=== PATIENT | female | born 1995 | race Caucasian/White ===

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

== ENCOUNTER 2017-03-31 04:26 | Emergency (ER) | payer OTHER, SELFPAY ==
[2017-03-31] MEDS ORDERED: Sodium Chloride 0.9% 1000 ML 1,000 ML IV STA (04:48)
[2017-03-31] MEDS ORDERED: Zofran 4 MG/2 ML VIAL IV STA (04:48)
--- NOTE | 2017-03-31 05:11 | ERPHSYRPT ---
- History of Present Illness Time Seen by Provider: 03/31/17 04:45 Source: patient Exam Limitations: no limitations Patient Subjective Stated Complaint: Pt sts onset at 1900 of burning in chest with cough, general malaise, body aches, nausea. Reports vomiting x 2. Reports yellow sputum with cough. Reports has not had BM in 2 weeks. Reports last tylenol at 0200, taking "four every four hours". Triage Nursing Assessment: Pt alert, oriented, answers all questions appropriately. Skin pink, warm, dry. Resps non-labored. pt ambulatory to tx room , steady gait noted. Lung sounds clear and equal bilat, non-labored. No rales, rhonchi, wheeze noted. ABD soft, diffusely mild tender all quadrants. + bowel sounds noted. Lips dry. Physician History: Pt started c/o gen. soreness, aching, nausea, vomiting x2 since midnight. She apparently had fever (103F), took 4 Tylenol, denies diarrhea, vomiting blood or coffee ground material. Her boyfriend has been treated with Bronchitis. Fever Severity: mild Fever Therapy [employer]: Acetaminophen Associated Symptoms: cough, muscle aches, nausea/vomiting, rhinorrhea, sore throat Allergies/Adverse Reactions: codeine [Codeine] Allergy (Mild, Verified 03/31/17 04:45) Home Medications: Etonogestrel [Nexplanon] 68 mg SQ UD 07/09/16 [History] Hx Tetanus, Diphtheria Vaccination/Date Given: Yes Hx Influenza Vaccination/Date Given: No Hx Pneumococcal Vaccination/Date Given: No - Review of Systems Constitutional: Fever, Chills Ears, Nose, & Throat: Nose Congestion, Throat Pain Respiratory: Cough All Other Systems: Reviewed and Negative - Past Medical History Pertinent Past Medical History: No GI Medical History: Ulcer Psycho-Social History: Anxiety, Depression Other Medical History: ovarian cysts - Past Surgical History Past Surgical History: No Other Surgical History: Nexplanon placement 04/2016 - Social History Smoking Status: Never smoker Exposure to second hand smoke: No Drug Use: none Patient Lives Alone: No - Female History Hx Last Menstrual Period: december 2016 - irregular, has nexplanon Hx Now: No - Nursing Vital Signs Nursing Vital Signs: Initial Vital Signs Temperature 99.7 F 03/31/17 04:38 Pulse Rate 129 H 03/31/17 04:38 Respiratory Rate 18 03/31/17 04:38 Blood Pressure 141/64 03/31/17 04:38 O2 Sat by Pulse Oximetry 96 03/31/17 04:38 Pain Scale Pain Intensity 6 - Physical Exam General Appearance: no apparent distress Eye Exam: eyes nml inspection ENT Exam: normal ENT inspection, TMs normal, pharynx normal, nasal congestion Neck Exam: normal inspection, non-tender, supple, trachea midline, No JVD Respiratory Exam: normal breath sounds, chest non-tender, lungs clear, no respiratory distress Cardiovascular/Chest Exam: normal heart sounds, regular rate/rhythm, normal peripheral pulses, No murmur, No edema, No JVD Gastrointestinal/Abdominal Exam: soft, non tender, no distention, no mass, no guarding, no organomegaly Extremity Exam: non-tender, no calf tenderness Neurologic Exam: alert, oriented x 3, cooperative, normal mood/affect Skin Exam: normal color, warm, dry, No rash Lymphatic: No adenopathy SpO2: 96 Oxygen Delivery: Room Air - Radiology Exams Chest X-ray Interpretation: Interpreted by me, Nml Heart Size, No Infiltrates, Nml Mediastinum Ordered Tests: Active Orders 24 hr Category Date Time Status IV Insertion STAT Care 03/31/17 04:48 Active CHEST 2 VIEWS (PA AND LAT) Stat Exams 03/31/17 04:48 Taken ACETAMINOPHEN Stat Lab 03/31/17 05:10 Completed CBC W DIFF Stat Lab 03/31/17 05:20 Completed CMP Stat Lab 03/31/17 05:20 Completed CULTURE, THROAT Stat Lab 03/31/17 05:00 Received HCG,QUALITATIVE URINE Stat Lab 03/31/17 05:10 Completed LIPASE Stat Lab 03/31/17 05:20 Completed Lactic Acid Stat Lab 03/31/17 05:40 Completed Manual Differential NC Stat Lab 03/31/17 05:20 Completed [place] Screen Stat Lab 03/31/17 05:20 Completed STREP SCREEN-BETA A Stat Lab 03/31/17 05:00 Completed UA W/RFX UR CULTURE Stat Lab 03/31/17 05:10 Completed Medication Summary Discontinued Medications Generic Name Dose Route Start Last Admin Trade Name Freq PRN Reason Stop Dose Admin Sodium Chloride 1,000 mls @ 999 mls/hr 03/31/17 04:48 03/31/17 05:52 Sodium Chloride 0.9% 1000 Ml IV 03/31/17 05:48 999 mls/hr .Q1H1M STA Administration Sodium Chloride Confirm 03/31/17 05:14 Sodium Chloride 0.9% 1000 Ml Administered 03/31/17 05:15 Dose 1,000 mls @ ud .ROUTE .GIVTED-[employer] ONE Ondansetron HCl 4 mg 03/31/17 04:48 03/31/17 05:52 Zofran 4 Mg/2 Ml Vial IV 03/31/17 04:49 4 mg STAT STA Administration Ondansetron HCl Confirm 03/31/17 05:14 Zofran 4 Mg/2 Ml Vial Administered 03/31/17 05:15 Dose 4 mg .ROUTE .Eligible-[facility] ONE Lab/Rad Data: Laboratory Result Diagrams 03/31/17 05:20 03/31/17 05:20 Laboratory Results 03/31/17 03/31/17 03/31/17 Range/Units 05:40 05:20 05:20 WBC (4.0-10.5) K/mm3 RBC (4.1-5.4) M/mm3 Hgb (12.0-16.0) gm/dl Hct (35-47) % MCV (78-100) fl MCH (26-32) pg MCHC (32-36) g/dl RDW (11.5-14.0) % Plt Count (150-450) K/mm3 MPV (6-9.5) fl Sodium (136-145) mEq/L Potassium (3.5-5.1) mEq/L Chloride (98-107) mEq/L Carbon Dioxide (21-32) mEq/L Anion Gap (5-15) MEQ/L BUN (9-20) mg/dL Creatinine (0.55-1.30) mg/dl Estimated GFR ML/MIN Glucose (70-110) MG/DL Lactic Acid 0.8 (0.4-2.0) Calcium (8.5-10.1) mg/dL Total Bilirubin (0.2-1.0) mg/dL AST (15-37) U/L ALT (12-78) U/L Alkaline Phosphatase (46-116) U/L Serum Total Protein (6.4-8.2) gm/dL Albumin (3.4-5.0) g/dL Lipase 82 (73-393) U/L Ur Collection Type Urine Color (YELLOW) Urine Appearance (CLEAR) Urine pH (5-6) Ur Specific [place] (1.005-1.025) Urine Protein (Negative) Urine Ketones (NEGATIVE) Urine Blood (0-5) Otto/ul Urine Nitrite (NEGATIVE) Urine Bilirubin (NEGATIVE) Urine Urobilinogen (0-1) mg/dL Ur Leukocyte Esterase (NEGATIVE) Urine Culture Reflexed (NO) Urine Glucose (NEGATIVE) mg/dL Urine HCG, Qual (Negative) Acetaminophen (10-30) ug/ml Monoscreen NEGATIVE (Negative) Influenza Type A Ag (NEGATIVE) Influenza Type B Ag (NEGATIVE) RSV (PCR) (Negative) Streptococcus Screen (Negative) Specimen Received 03/31/17 03/31/17 03/31/17 Range/Units 05:20 05:20 05:10 WBC 6.9 (4.0-10.5) K/mm3 RBC 4.42 (4.1-5.4) M/mm3 Hgb 11.7 L (12.0-16.0) gm/dl Hct 35.4 (35-47) % MCV 80.1 (78-100) fl MCH 26.4 (26-32) pg MCHC 33.1 (32-36) g/dl RDW 13.1 (11.5-14.0) % Plt Count 260 (150-450) K/mm3 MPV 9.5 (6-9.5) fl Sodium 138 (136-145) mEq/L Potassium 3.6 (3.5-5.1) mEq/L Chloride 106 (98-107) mEq/L Carbon Dioxide 21.3 (21-32) mEq/L Anion Gap 13.8 (5-15) MEQ/L BUN 6 L (9-20) mg/dL Creatinine 0.73 (0.55-1.30) mg/dl Estimated GFR > 60 ML/MIN Glucose 90 (70-110) MG/DL Lactic Acid (0.4-2.0) Calcium 9.1 (8.5-10.1) mg/dL Total Bilirubin 0.20 (0.2-1.0) mg/dL AST 23 (15-37) U/L ALT 10 L (12-78) U/L Alkaline Phosphatase 79 (46-116) U/L Serum Total Protein 7.5 (6.4-8.2) gm/dL Albumin 3.7 (3.4-5.0) g/dL Lipase (73-393) U/L Ur Collection Type Urine Color (YELLOW) Urine Appearance (CLEAR) Urine pH (5-6) Ur Specific [place] (1.005-1.025) Urine Protein (Negative) Urine Ketones (NEGATIVE) Urine Blood (0-5) Otto/ul Urine Nitrite (NEGATIVE) Urine Bilirubin (NEGATIVE) Urine Urobilinogen (0-1) mg/dL Ur Leukocyte Esterase (NEGATIVE) Urine Culture Reflexed (NO) Urine Glucose (NEGATIVE) mg/dL Urine HCG, Qual (Negative) Acetaminophen < 2.0 L (10-30) ug/ml Monoscreen (Negative) Influenza Type A Ag (NEGATIVE) Influenza Type B Ag (NEGATIVE) RSV (PCR) (Negative) Streptococcus Screen (Negative) Specimen Received 03/31/17 03/31/17 03/31/17 Range/Units 05:10 05:10 05:00 WBC (4.0-10.5) K/mm3 RBC (4.1-5.4) M/mm3 Hgb (12.0-16.0) gm/dl Hct (35-47) % MCV (78-100) fl MCH (26-32) pg MCHC (32-36) g/dl RDW (11.5-14.0) % Plt Count (150-450) K/mm3 MPV (6-9.5) fl Sodium (136-145) mEq/L Potassium (3.5-5.1) mEq/L Chloride (98-107) mEq/L Carbon Dioxide (21-32) mEq/L Anion Gap (5-15) MEQ/L BUN (9-20) mg/dL Creatinine (0.55-1.30) mg/dl Estimated GFR ML/MIN Glucose (70-110) MG/DL Lactic Acid (0.4-2.0) Calcium (8.5-10.1) mg/dL Total Bilirubin (0.2-1.0) mg/dL AST (15-37) U/L ALT (12-78) U/L Alkaline Phosphatase (46-116) U/L Serum Total Protein (6.4-8.2) gm/dL Albumin (3.4-5.0) g/dL Lipase (73-393) U/L Ur Collection Type CLEAN CATCH Urine Color LT.YELLOW (YELLOW) Urine Appearance CLEAR (CLEAR) Urine pH 7.0 (5-6) Ur Specific [place] 1.005 (1.005-1.025) Urine Protein NEGATIVE (Negative) Urine Ketones NEGATIVE (NEGATIVE) Urine Blood NEGATIVE (0-5) Otto/ul Urine Nitrite NEGATIVE (NEGATIVE) Urine Bilirubin NEGATIVE (NEGATIVE) Urine Urobilinogen NORMAL (0-1) mg/dL Ur Leukocyte Esterase NEGATIVE (NEGATIVE) Urine Culture Reflexed NO (NO) Urine Glucose NEGATIVE (NEGATIVE) mg/dL Urine HCG, Qual NEGATIVE (Negative) Acetaminophen (10-30) ug/ml Monoscreen (Negative) Influenza Type A Ag POSITIVE (NEGATIVE) Influenza Type B Ag NEGATIVE (NEGATIVE) RSV (PCR) NEGATIVE (Negative) Streptococcus Screen (Negative) Specimen Received 03/31/17 0510 03/31/17 Range/Units 05:00 WBC (4.0-10.5) K/mm3 RBC (4.1-5.4) M/mm3 Hgb (12.0-16.0) gm/dl Hct (35-47) % MCV (78-100) fl MCH (26-32) pg MCHC (32-36) g/dl RDW (11.5-14.0) % Plt Count (150-450) K/mm3 MPV (6-9.5) fl Sodium (136-145) mEq/L Potassium (3.5-5.1) mEq/L Chloride (98-107) mEq/L Carbon Dioxide (21-32) mEq/L Anion Gap (5-15) MEQ/L BUN (9-20) mg/dL Creatinine (0.55-1.30) mg/dl Estimated GFR ML/MIN Glucose (70-110) MG/DL Lactic Acid (0.4-2.0) Calcium (8.5-10.1) mg/dL Total Bilirubin (0.2-1.0) mg/dL AST (15-37) U/L ALT (12-78) U/L Alkaline Phosphatase (46-116) U/L Serum Total Protein (6.4-8.2) gm/dL Albumin (3.4-5.0) g/dL Lipase (73-393) U/L Ur Collection Type Urine Color (YELLOW) Urine Appearance (CLEAR) Urine pH (5-6) Ur Specific [place] (1.005-1.025) Urine Protein (Negative) Urine Ketones (NEGATIVE) Urine Blood (0-5) Otto/ul Urine Nitrite (NEGATIVE) Urine Bilirubin (NEGATIVE) Urine Urobilinogen (0-1) mg/dL Ur Leukocyte Esterase (NEGATIVE) Urine Culture Reflexed (NO) Urine Glucose (NEGATIVE) mg/dL Urine HCG, Qual (Negative) Acetaminophen (10-30) ug/ml Monoscreen (Negative) Influenza Type A Ag (NEGATIVE) Influenza Type B Ag (NEGATIVE) RSV (PCR) (Negative) Streptococcus Screen NEGATIVE (Negative) Specimen Received - Progress Progress: improved Progress Note: 03/31/17 06:26 Pt has been afebrile, stopped vomiting, feels better altogether. She was given iv fluids, Toradol, iv Zofran. Flu A test positive. I explained our results, and the need to rest for 2-3 days, drink plenty of fluids, and follow up with her doctor next week. She understood, will follow instructions, and return if any worseninbg, severe headaches, vomiting, high fever> 103F. All questions answered. - Departure Time of Disposition: 06:28 Departure Disposition: Home Clinical Impression: Influenza A Condition: Stable Critical Care Time: No Referrals: DUDLEY SANDOVAL),FLORIAN OLIVARES MD [Primary Care Provider] - Instructions: Vomiting -- Adult, Influenza -- Adult Additional Instructions: Rest x 2-3 days, drink plenty of fluids, return if severe headaches, vomiting, high fever> 103F, lethargy ! Prescriptions: Oseltamivir 75 mg [Tamiflu 75MG Capsule] 75 mg PO BID #10 cap
[2017-03-31] MEDS ORDERED: Zofran 4 MG/2 ML VIAL ONE (05:14)
[2017-03-31] MEDS ORDERED: Sodium Chloride 0.9% 1000 ML 1,000 ML ONE (05:14)
[2017-03-31 05:31] LABS: Mean Cell Volume 80.1 fl (78-100); Mean Platelet Volume 9.5 fl (6-9.5); Platelet Count 260 K/mm3 (150-450); Red Blood Count 4.42 M/mm3 (4.1-5.4); Red Cell Distribution Width 13.1 % (11.5-14.0); White Blood Count 6.9 K/mm3 (4.0-10.5)
[2017-03-31 05:44] LABS: Mean Corpuscular Hemoglobin 26.4 pg (26-32)
[2017-03-31 05:49] LABS: ALBUMIN 3.7 g/dL (3.4-5.0); ALKALINE PHOSPHATASE 79 U/L (46-116); ANION GAP 13.8 MEQ/L (5-15); BLOOD UREA NITROGEN 6 mg/dL (9-20); CHLORIDE 106 mEq/L (98-107); Carbon Dioxide 21.3 mEq/L (21-32); Glucose 90 MG/DL (70-110); Potassium 3.6 mEq/L (3.5-5.1); SGOT/AST 23 U/L (15-37); SODIUM 138 mEq/L (136-145); Total Protein 7.5 gm/dL (6.4-8.2)
[2017-03-31 05:51] LABS: ADD URINE CULTURE? NO (NO); Bilirubin NEGATIVE (NEGATIVE); Blood NEGATIVE Ery/ul (0-5); COMPLETE URINE MICROSCOPIC? NO; Collection Type CLEAN CATCH; Glucose NEGATIVE (NEGATIVE); Leukocyte Esterase NEGATIVE (NEGATIVE)
[2017-03-31 06:00] LABS: SGPT/ALT 10 U/L (12-78)
[2017-03-31] MEDS ORDERED: TORAdol 30 mg Injection IV ONE (06:25)
[2017-03-31] MEDS ORDERED: Tamiflu 75MG Capsule PO ONE ×2 (06:30→06:52)
[2017-03-31] MEDS ORDERED: TORAdol 30 mg Injection ONE (06:52)
[2017-03-31 07:21] VITALS: BP 104/87; PULSE 98; O2SAT 97
[2017-03-31 09:46] LABS: Total Cells Counted 100
[2017-03-31 09:47] LABS: Platelet Estimate NORMAL (NORMAL)
--- NOTE | 2017-03-31 11:23 | XRAY ---
Indication: Fever and cough. Comparison: March 28, 2016. PA/lateral chest again demonstrates normal heart, lungs, and bony thorax.
== END 2017-03-31 07:15 | disposition home or self-care (01) ==
LOC: ED 04:26
DX: J11.1 Influenza due to unidentified influenza virus with other respiratory manifestations (principal); R11.2 Nausea with vomiting, unspecified; R05 Cough; J34.89 Other specified disorders of nose and nasal sinuses; J02.9 Acute pharyngitis, unspecified; M79.1 Myalgia
CPT/HCPCS: 36000; 36415; 71020; 80053; 81002; 83605; 83690; 84703; 85025; 86308; 87070; 87430; 87631; 96360; 99284; G0481; J1885; J2405; A9270-GY

== ENCOUNTER 2017-12-29 13:38 | Emergency (ER) | payer SELFPAY ==
[2017-12-29 13:55] VITALS: BP 120/49; PULSE 83; O2SAT 98
--- NOTE | 2017-12-29 13:58 | ERPHSYRPT ---
- History of Present Illness Time Seen by Provider: 12/29/17 13:53 Source: patient Physician History: 22-year-old white female arrives with complaint of cough nasal congestion symptoms for one week patient had a fever 2 days ago no nausea no vomiting. Past medical history is anxiety and depression . Past surgical history is negative. Patient does have Implanon. Last menstrual period was 2 days ago Timing/Duration: week(s) (one week) Severity: moderate Modifying Factors: Improves With: nothing Associated Symptoms: cough, No nausea, No vomiting, No abdominal pain, No shortness of breath, No heartburn, No diaphoresis, No chills, No chest pain, No fever, No headaches, No loss of appetite, No malaise, No rash, No syncope, No seizure, No weakness Allergies/Adverse Reactions: codeine [Codeine] Allergy (Mild, Verified 12/29/17 13:55) Home Medications: Etonogestrel [Nexplanon] 68 mg SQ UD 07/09/16 [History] Hx Tetanus, Diphtheria Vaccination/Date Given: Yes Hx Influenza Vaccination/Date Given: No Hx Pneumococcal Vaccination/Date Given: No - Review of Systems Constitutional: No Fever, No Chills Eyes: No Symptoms Ears, Nose, & Throat: Nose Congestion, Sinus Drainage, Other (sinus pain), No Ear Pain, No Ear Discharge, No Hearing Changes, No Tinnitus, No Nose Pain, No Nose Discharge Respiratory: Cough, No Dyspnea Cardiac: No Chest Pain, No Edema, No Syncope Abdominal/Gastrointestinal: No Abdominal Pain, No Nausea, No Vomiting, No Diarrhea Genitourinary Symptoms: No Dysuria Musculoskeletal: No Back Pain, No Neck Pain Skin: No Rash Neurological: No Dizziness, No Focal Weakness, No Sensory Changes Psychological: No Symptoms Endocrine: No Symptoms All Other Systems: Reviewed and Negative - Past Medical History Pertinent Past Medical History: No GI Medical History: Ulcer Psycho-Social History: Anxiety, Depression Other Medical History: ovarian cysts - Past Surgical History Past Surgical History: No Other Surgical History: Nexplanon placement 04/2016 - Social History Smoking Status: Never smoker Exposure to second hand smoke: No Drug Use: none Patient Lives Alone: No - Nursing Vital Signs Nursing Vital Signs: Initial Vital Signs Temperature 98.2 F 12/29/17 13:49 Pulse Rate 83 12/29/17 13:49 Respiratory Rate 12/29/17 13:49 Blood Pressure 120/49 12/29/17 13:49 O2 Sat by Pulse Oximetry 98 12/29/17 13:49 Pain Scale Pain Intensity 3 - Physical Exam General Appearance: mild distress Eye Exam: PERRL/EOMI, eyes nml inspection, other (fundi are unremarkable) Ears, Nose, Throat Exam: TMs normal, pharynx normal, other (boggy erythematous nasal mucosa, tenderness with percussion maxillary sinuses) Neck Exam: normal inspection, non-tender, supple, full range of motion Respiratory Exam: normal breath sounds, lungs clear, No respiratory distress Cardiovascular Exam: regular rate/rhythm, normal heart sounds, normal peripheral pulses Gastrointestinal/Abdomen Exam: soft, normal bowel sounds, No tenderness, No mass Back Exam: normal inspection, normal range of motion, No CVA tenderness, No vertebral tenderness Extremity Exam: normal inspection, normal range of motion, pelvis stable Neurologic Exam: alert, oriented x 3, cooperative, client solutions director II-XII nml as tested, normal mood/affect, nml cerebellar function, nml station & gait, sensation nml, No motor deficits Skin Exam: normal color, warm, dry, No rash SpO2 Interpretation: normal (O2 sats98%) - Course Nursing assessment & vital signs reviewed: Yes - Progress Progress: improved Progress Note: 12/29/17 13:56 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 Patient with boggy erythematous nasal mucosa and tenderness with percussion in the maxillary sinuses. Will go ahead and place patient on amoxicillin 500 mg by mouth 3 times a day for 10 days plenty of fluids, Tylenol. - Departure Time of Disposition: 13:57 Departure Disposition: Home Clinical Impression: Sinusitis Qualifiers: Sinusitis location: maxillary Chronicity: acute Recurrence: non-recurrent Qualified Code(s): J01.00 - Acute maxillary sinusitis, unspecified URI (upper respiratory infection) Qualifiers: URI type: unspecified URI Qualified Code(s): J06.9 - Acute upper respiratory infection, unspecified Condition: Fair Critical Care Time: No Referrals: DUDLEY SANDOVAL),FLORIAN OLIVARES MD [NON-STAFF PHY W/O PRIVILEGES] - Instructions: Sinusitis, Adult (DC) Additional Instructions: Return home. Plenty of fluids. Tylenol every 4 hours as needed for pain. Amoxicillin as prescribed. Follow-up with your family doctor if symptoms are worse, no better in 48 hours or persist longer than one week. Return for acute distress or for severe symptoms. Prescriptions: Amoxicillin 500 mg PO TID #30 capsule
== END 2017-12-29 14:11 | disposition home or self-care (01) ==
LOC: ED 13:38
DX: J32.9 Chronic sinusitis, unspecified (principal); J06.9 Acute upper respiratory infection, unspecified
CPT/HCPCS: 99283

== ENCOUNTER 2018-03-01 20:33 | Emergency (ER) | payer OTHER ==
--- NOTE | 2018-03-01 21:07 | ERPHSYRPT ---
- History of Present Illness Time Seen by Provider: 03/01/18 20:55 Historian: patient Exam Limitations: no limitations Patient Subjective Stated Complaint: Abdominal pain/possible Triage Nursing Assessment: Patient ambulated into ER and transferred self to bed. Patient complains of abdominal cramping /10, breast tenderness, low back pain. Patient complains of N/V for 3 days. Patient states she took three home tests, which two were invalid and one was negative. Patient states she is sexual active, but as Nexplannon in her left arm. Patient's last period was 4 weeks ago. Patient's abdomen soft and round with active BS. Patient complains of cramping in lower abdomen and back 6/10. Patient denies any diarrhea. Physician History: 22 y/o white female presents with complaint of bilat lower abd pain, bilat lower back pain and bilat breast tendernessfor a few days. she is nauseated now but did vomit once the last 2 days. pt has left upper ext nexplannon implanted 2 years ago. no vaginal bleeding or discharge. pt has no cp and no soa. pt has no urinary sx. Timing/Duration: day(s) (3), intermittent Activities at Onset: none Quality: cramping Abdominal Pain Onset Location: LLQ, suprapubic, flank Pain Radiation: no radiation Severity of Pain-Max: mild Severity of Pain-Current: mild Modifying Factors: Improves With: palpation, vomiting. Worsens With: urinating Associated Symptoms: back, nausea, vomiting, No chest pain, No diaphoresis, No diarrhea, No fever/chills, No fatigue, No headache, No heartburn, No loss of appetite, No neck pain, No rash, No shortness of breath, No syncope Previous symptoms: no prior history Allergies/Adverse Reactions: codeine [Codeine] Allergy (Mild, Verified 03/01/18 20:51) Home Medications: Etonogestrel [Nexplanon] 68 mg SQ UD 07/09/16 [History] Hx Tetanus, Diphtheria Vaccination/Date Given: No Hx Influenza Vaccination/Date Given: No Hx Pneumococcal Vaccination/Date Given: No Immunizations Up to Date: Yes - Review of Systems Constitutional: No Symptoms Eyes: No Symptoms Ears, Nose, & Throat: No Symptoms Respiratory: No Symptoms Cardiac: No Symptoms Abdominal/Gastrointestinal: Abdominal Pain (bilat lower quadrants suprapubic), Nausea, Vomiting, No Diarrhea, No Constipation Genitourinary Symptoms: No Symptoms, No Dysuria, No Frequency, No Hematuria Musculoskeletal: No Symptoms Skin: No Symptoms Neurological: No Symptoms Psychological: No Symptoms Endocrine: No Symptoms Hematologic/Lymphatic: No Symptoms Immunological/Allergic: No Symptoms All Other Systems: Reviewed and Negative - Past Medical History Pertinent Past Medical History: Yes Neurological History: No Pertinent History ENT History: No Pertinent History Cardiac History: No Pertinent History Respiratory History: No Pertinent History Endocrine Medical History: No Pertinent History GI Medical History: Ulcer History: No Pertinent History Psycho-Social History: No Pertinent History Female Reproductive Disorders: Other Other Medical History: ovarian cysts - Past Surgical History Past Surgical History: No Other Surgical History: Nexplanon placement 04/2016 - Social History Smoking Status: Never smoker Exposure to second hand smoke: Yes Drug Use: none Patient Lives Alone: Yes - Female History Hx Last Menstrual Period: 4 weeks ago Hx Now: (unsure) - Nursing Vital Signs Nursing Vital Signs: Initial Vital Signs Temperature 98.2 F 03/01/18 20:40 Pulse Rate 86 03/01/18 20:40 Respiratory Rate 18 03/01/18 20:40 Blood Pressure 137/67 03/01/18 20:40 O2 Sat by Pulse Oximetry 96 03/01/18 20:40 Pain Scale Pain Intensity 6 - Physical Exam General Appearance: no apparent distress, alert, anxiety Eye Exam: PERRL/EOMI, eyes nml inspection Ears, Nose, Throat Exam: normal ENT inspection, moist mucous membranes Neck Exam: normal inspection, non-tender, supple, full range of motion Respiratory Exam: normal breath sounds, lungs clear, airway intact, No chest tenderness, No respiratory distress, No accessory muscle use, No rhonchi, No wheezing, No stridor Cardiovascular Exam: regular rate/rhythm, normal heart sounds, normal peripheral pulses Gastrointestinal/Abdomen Exam: soft, normal bowel sounds, tenderness (bilat lower quadrants; suprapubic), No guarding, No rebound Pelvic Exam: not done Rectal Exam: not done Back Exam: normal inspection, normal range of motion, No CVA tenderness, No vertebral tenderness Extremity Exam: other (left arm implant site intact; no infection) Neurologic Exam: alert, oriented x 3, cooperative, bobbin drier II-XII nml as tested Skin Exam: normal color, warm, dry Lymphatic Exam: No adenopathy SpO2 Interpretation: normal SpO2: 96 Oxygen Delivery: Room Air - Course Nursing assessment & vital signs reviewed: Yes Ordered Tests: Active Orders 24 hr Category Date Time Status AMYLASE Stat Lab 03/01/18 21:36 Completed CBC W DIFF Stat Lab 03/01/18 21:36 Completed CMP Stat Lab 03/01/18 21:36 Completed HCG QUALITATIVE,SERUM Stat Lab 03/01/18 21:36 Completed LIPASE Stat Lab 03/01/18 21:36 Completed UA W/RFX UR CULTURE Stat Lab 03/01/18 21:30 Completed Medication Summary Discontinued Medications Generic Name Dose Route Start Last Admin Trade Name Freq PRN Reason Stop Dose Admin Ondansetron HCl 4 mg 03/01/18 21:11 03/01/18 21:15 Zofran Odt 4 Mg PO 03/01/18 21:12 4 mg STAT ONE Administration Ondansetron HCl Confirm 03/01/18 21:14 Zofran Odt 4 Mg Administered 03/01/18 21:15 Dose 4 mg .ROUTE .[employer] ONE Lab/Rad Data: Laboratory Result Diagrams 03/01/18 21:36 03/01/18 21:36 Laboratory Results 03/01/18 03/01/18 03/01/18 Range/Units 21:36 21:36 21:36 WBC 9.3 (4.0-10.5) K/mm3 RBC 4.71 (4.1-5.4) M/mm3 Hgb 12.5 (12.0-16.0) gm/dl Hct 37.8 (35-47) % MCV 80.3 (78-100) fl MCH 26.5 (26-32) pg MCHC 33.1 (32-36) g/dl RDW 13.8 (11.5-14.0) % Plt Count 356 (150-450) K/mm3 MPV 9.4 (6-9.5) fl Gran % 66.2 H (36.0-66.0) % Eos # (Auto) 0.07 (0-0.5) Absolute Lymphs (auto) 2.30 (1.0-4.6) Absolute Monos (auto) 0.73 (0.0-1.3) Lymphocytes % 24.9 (24.0-44.0) % Monocytes % 7.9 (0.0-12.0) % Eosinophils % 0.8 (0.00-5.0) % Basophils % 0.2 (0.0-0.4) % Absolute Granulocytes 6.13 (1.4-6.9) Basophils # 0.02 (0-0.4) Sodium 140 (137-145) mmol/L Potassium 4.1 (3.5-5.1) mmol/L Chloride 106 (98-107) mmol/L Carbon Dioxide 24 (22-30) mmol/L Anion Gap 14.8 (5-15) MEQ/L BUN 12 (7-17) mg/dL Creatinine 0.62 (0.52-1.04) mg/dL Estimated GFR > 60.0 ML/MIN Glucose 90 (74-106) mg/dL Calcium 9.7 (8.4-10.2) mg/dL Total Bilirubin 0.20 (0.2-1.3) mg/dL AST 18 (14-36) U/L ALT 14 (0-35) U/L Alkaline Phosphatase 77 (38-126) U/L Serum Total Protein 7.6 (6.3-8.2) g/dL Albumin 4.4 (3.5-5.0) g/dL Amylase 76 (30-110) U/L Lipase 42 (23-300) U/L Serum , Qual NEGATIVE (Negative) Urine Color (YELLOW) Urine Appearance (CLEAR) Urine pH (5-6) Ur Specific [place] (1.005-1.025) Urine Protein (Negative) Urine Ketones (NEGATIVE) Urine Blood (0-5) Otto/ul Urine Nitrite (NEGATIVE) Urine Bilirubin (NEGATIVE) Urine Urobilinogen (0-1) mg/dL Ur Leukocyte Esterase (NEGATIVE) Urine WBC (Auto) (0-5) /HPF Urine RBC (Auto) (0-2) /HPF U Epithel Cells (Auto) (FEW) /HPF Urine Bacteria (Auto) (NEGATIVE) /HPF Urine Mucus (Auto) (NEGATIVE) /HPF Urine Culture Reflexed (NO) Urine Glucose (NEGATIVE) mg/dL 03/01/18 Range/Units 21:30 WBC (4.0-10.5) K/mm3 RBC (4.1-5.4) M/mm3 Hgb (12.0-16.0) gm/dl Hct (35-47) % MCV (78-100) fl MCH (26-32) pg MCHC (32-36) g/dl RDW (11.5-14.0) % Plt Count (150-450) K/mm3 MPV (6-9.5) fl Gran % (36.0-66.0) % Eos # (Auto) (0-0.5) Absolute Lymphs (auto) (1.0-4.6) Absolute Monos (auto) (0.0-1.3) Lymphocytes % (24.0-44.0) % Monocytes % (0.0-12.0) % Eosinophils % (0.00-5.0) % Basophils % (0.0-0.4) % Absolute Granulocytes (1.4-6.9) Basophils # (0-0.4) Sodium (137-145) mmol/L Potassium (3.5-5.1) mmol/L Chloride (98-107) mmol/L Carbon Dioxide (22-30) mmol/L Anion Gap (5-15) MEQ/L BUN (7-17) mg/dL Creatinine (0.52-1.04) mg/dL Estimated GFR ML/MIN Glucose (74-106) mg/dL Calcium (8.4-10.2) mg/dL Total Bilirubin (0.2-1.3) mg/dL AST (14-36) U/L ALT (0-35) U/L Alkaline Phosphatase (38-126) U/L Serum Total Protein (6.3-8.2) g/dL Albumin (3.5-5.0) g/dL Amylase (30-110) U/L Lipase (23-300) U/L Serum , Qual (Negative) Urine Color STRAW (YELLOW) Urine Appearance CLEAR (CLEAR) Urine pH 7.0 (5-6) Ur Specific [place] 1.005 (1.005-1.025) Urine Protein NEGATIVE (Negative) Urine Ketones NEGATIVE (NEGATIVE) Urine Blood NEGATIVE (0-5) Otto/ul Urine Nitrite NEGATIVE (NEGATIVE) Urine Bilirubin NEGATIVE (NEGATIVE) Urine Urobilinogen NEGATIVE (0-1) mg/dL Ur Leukocyte Esterase NEGATIVE (NEGATIVE) Urine WBC (Auto) NONE (0-5) /HPF Urine RBC (Auto) NONE (0-2) /HPF U Epithel Cells (Auto) RARE (FEW) /HPF Urine Bacteria (Auto) NONE (NEGATIVE) /HPF Urine Mucus (Auto) SLIGHT (NEGATIVE) /HPF Urine Culture Reflexed NO (NO) Urine Glucose NEGATIVE (NEGATIVE) mg/dL - Progress Progress: unchanged Counseled pt/family regarding: lab results, diagnosis, need for follow-up - Departure Time of Disposition: 22:12 Departure Disposition: Home Clinical Impression: Generalized muscle ache, Abdominal pain, Nausea & vomiting Condition: Stable Critical Care Time: No Referrals: FLORIAN BUCKNER [Primary Care Provider] - Additional Instructions: Drink plenty of fluids. follow up with primary doctor for further management Prescriptions: Ondansetron HCl [Zofran] 4 mg PO TID PRN #10 tablet PRN Reason: Nausea/Vomiting
[2018-03-01] MEDS ORDERED: ZOFRAN ODT 4 MG PO ONE (21:11)
[2018-03-01] MEDS ORDERED: ZOFRAN ODT 4 MG ONE (21:14)
[2018-03-01 21:25] VITALS: BP 125/74
[2018-03-01 21:38] LABS: BASOPHIL % 0.2 % (0.0-0.4); Basophil (Absolute #) 0.02 (0-0.4); Eosinophil % 0.8 % (0.00-5.0); Eosinophil (Absolute #) 0.07 (0-0.5); Granulocyte Absolute (ANC) 6.13 (1.4-6.9); Granulocytes % 66.2 % (36.0-66.0); Hematocrit 37.8 % (35-47); Hemoglobin 12.5 gm/dl (12.0-16.0); Lymphocytes % 24.9 % (24.0-44.0); Mean Cell Volume 80.3 fl (78-100); Mean Corpuscular Hemoglobin 26.5 pg (26-32); Mean Corpuscular Hgb Concent. 33.1 g/dl (32-36); Mean Platelet Volume 9.4 fl (6-9.5); Monocyte (Absolute #) 0.73 (0.0-1.3); Monocytes % 7.9 % (0.0-12.0); Platelet Count 356 K/mm3 (150-450); Red Blood Count 4.71 M/mm3 (4.1-5.4); Red Cell Distribution Width 13.8 % (11.5-14.0); White Blood Count 9.3 K/mm3 (4.0-10.5)
[2018-03-01 21:44] LABS: Appearance CLEAR (CLEAR); Bilirubin NEGATIVE (NEGATIVE); Blood NEGATIVE Ery/ul (0-5); Glucose NEGATIVE (NEGATIVE); Ketones NEGATIVE (NEGATIVE); Leukocyte Esterase NEGATIVE (NEGATIVE); Nitrite NEGATIVE (NEGATIVE); Protein,Urine Dip NEGATIVE (Negative); Specific Gravity 1.005 (1.005-1.025); Urobilinogen NEGATIVE mg/dL (0-1)
[2018-03-01 22:00] VITALS: PULSE 82
[2018-03-01 22:06] LABS: ALBUMIN 4.4 g/dL (3.5-5.0); ALKALINE PHOSPHATASE 77 U/L (38-126); AMYLASE 76 U/L (30-110); ANION GAP 14.8 MEQ/L (5-15); BLOOD UREA NITROGEN 12 mg/dL (7-17); CHLORIDE 106 mmol/L (98-107); Calcium 9.7 mg/dL (8.4-10.2); Carbon Dioxide 24 mmol/L (22-30); Creatinine 1 0.62 mg/dL (0.52-1.04); Glucose 90 mg/dL (74-106); LIPASE 42 U/L (23-300); Potassium 4.1 mmol/L (3.5-5.1); SGOT/AST 18 U/L (14-36); SGPT/ALT 14 U/L (0-35); SODIUM 140 mmol/L (137-145); Total Protein 7.6 g/dL (6.3-8.2)
[2018-03-01 22:14] VITALS: O2SAT 96
== END 2018-03-01 22:20 | disposition home or self-care (01) ==
LOC: ED 20:33
DX: M79.10 Myalgia, unspecified site (principal); R10.32 Left lower quadrant pain; R10.31 Right lower quadrant pain; R11.2 Nausea with vomiting, unspecified; M54.9 Dorsalgia, unspecified
CPT/HCPCS: 36415; 80053; 81001; 81025; 82150; 83690; 85025; 99283; Q0162

== ENCOUNTER 2018-05-29 13:37 | Emergency (ER) | payer MEDICAID, OTHER ==
[2018-05-29] MEDS ORDERED: DUONEB 0.5-3 MG/3 ml Neb IH ONE ×2 (14:05→14:16)
--- NOTE | 2018-05-29 14:10 | ERPHSYRPT ---
- History of Present Illness Time Seen by Provider: 05/29/18 14:06 Source: patient Exam Limitations: no limitations Patient Subjective Stated Complaint: cough x 2 weeks. seen at the [facility] and was told she had the flu but no swab was taken.. seen at [facility] last week and placed on ATB and steriods.. does not feel like getting vbetter. no fever in 2 weeks. dry cough. Triage Nursing Assessment: alert and in no respiratory distress. dry cough noted. states non productive. congested lungs. denies fever at this time. states ears delio stopped up. was told she had sinusitis and something whith her bronchiols but unsure what. Physician History: This is a 22-year-old white female arrives with complaint of a cough symptoms which has been going on for about 2 weeks. She states she was seen at [facility] 2 weeks ago, diagnosed with the flu. She states that she was later seen by Hilary Baird, last Sunday, she states she was told that she had a bronchitis and sinusitis and was given an injection of steroids placed on steroids and placed on antibiotics and an albuterol inhaler. Patient states she continues to cough she is not having fevers she does have runny nose. Past medical history ovarian cyst Past surgical history history of neck splint on which has been subsequently removed Social history patient states she smoked some CBD oil . She denies illicit drugs, tobacco, or alcohol. Timing/Duration: week(s) (2 weeks) Severity: moderate Modifying Factors: Improves With: nothing Associated Symptoms: shortness of breath, cough, No nausea, No vomiting, No abdominal pain, No heartburn, No diaphoresis, No chest pain, No fever, No headaches, No loss of appetite, No malaise, No rash, No syncope, No seizure, No weakness Allergies/Adverse Reactions: codeine [Codeine] Allergy (Mild, Verified 03/01/18 20:51) Home Medications: Ciprofloxacin HCl [Cipro] 250 mg PO 05/29/18 [History] Prednisone 20 mg [Deltasone 20 mg] 0 mg PO 05/29/18 [History] Hx Tetanus, Diphtheria Vaccination/Date Given: No Hx Influenza Vaccination/Date Given: No Hx Pneumococcal Vaccination/Date Given: No Immunizations Up to Date: Yes - Review of Systems Constitutional: No Fever, No Chills Eyes: No Symptoms Ears, Nose, & Throat: Nose Congestion, Nose Discharge, No Ear Pain, No Ear Discharge, No Hearing Changes, No Tinnitus, No Nose Pain, No Sinus Drainage, No Epistaxis, No Mouth Pain, No Mouth Swelling, No Loose Teeth, No Throat Pain, No Throat Swelling, No Hoarse, No Painful Swallowing, No Snoring, No Stridor Respiratory: Cough, Dyspnea, No Wheezing Cardiac: No Chest Pain, No Edema, No Syncope Abdominal/Gastrointestinal: No Abdominal Pain, No Nausea, No Vomiting, No Diarrhea Genitourinary Symptoms: No Dysuria Musculoskeletal: No Back Pain, No Neck Pain Skin: No Rash Neurological: No Dizziness, No Focal Weakness, No Sensory Changes Psychological: No Symptoms Endocrine: No Symptoms All Other Systems: Reviewed and Negative - Past Medical History Pertinent Past Medical History: Yes Neurological History: No Pertinent History ENT History: No Pertinent History Cardiac History: No Pertinent History Respiratory History: No Pertinent History Endocrine Medical History: No Pertinent History GI Medical History: Ulcer History: No Pertinent History Psycho-Social History: No Pertinent History Female Reproductive Disorders: Other Other Medical History: ovarian cysts - Past Surgical History Past Surgical History: Yes Other Surgical History: Nexplanon placement 04/2016 - Social History Smoking Status: Never smoker Exposure to second hand smoke: No Drug Use: none Patient Lives Alone: No - Female History Hx Now: No - Nursing Vital Signs Nursing Vital Signs: Initial Vital Signs Temperature 98.4 F 05/29/18 13:50 Pulse Rate 90 05/29/18 13:50 Respiratory Rate 18 05/29/18 13:50 Blood Pressure 131/69 05/29/18 13:50 O2 Sat by Pulse Oximetry 98 05/29/18 13:50 Pain Scale Pain Intensity 6 - Physical Exam General Appearance: mild distress, alert, other (well-developed well-nourished white female, coughs when asked to take a deep breath) Eye Exam: PERRL/EOMI, eyes nml inspection Ears, Nose, Throat Exam: normal ENT inspection, TMs normal, pharynx normal, moist mucous membranes Neck Exam: normal inspection, non-tender, supple, full range of motion Respiratory Exam: normal breath sounds, lungs clear, No respiratory distress Cardiovascular Exam: regular rate/rhythm, normal heart sounds, normal peripheral pulses, capillary refill <2 sec Gastrointestinal/Abdomen Exam: soft, normal bowel sounds, No tenderness, No mass Back Exam: normal inspection, normal range of motion, No CVA tenderness, No vertebral tenderness Extremity Exam: normal inspection, normal range of motion, pelvis stable Neurologic Exam: alert, oriented x 3, cooperative, sample processor II-XII nml as tested, normal mood/affect, nml cerebellar function, nml station & gait, sensation nml, No motor deficits Skin Exam: normal color, warm, dry, No rash Lymphatic Exam: No adenopathy SpO2 Interpretation: normal (Another girl at a rate 98%) SpO2: 98 - Course Nursing assessment & vital signs reviewed: Yes - Radiology Exams Chest X-ray Interpretation: Discussed w/ radiologist (chest x-ray: Normal heart, lungs and bony thorax) Ordered Tests: Active Orders 24 hr Category Date Time Status CHEST 1 VIEW (PORTABLE) Stat Exams 05/29/18 14:23 Completed HCG,QUALITATIVE URINE Stat Lab 05/29/18 14:05 Completed Peak Expiratory Flow Rate ONCE RT 05/29/18 14:21 Active Respiratory Nebulizer STAT RT 05/29/18 14:05 Completed Respiratory Therapy Assessment DAILY RT 05/29/18 14:21 Active Medication Summary Discontinued Medications Generic Name Dose Route Start Last Admin Trade Name Freq PRN Reason Stop Dose Admin Albuterol/Ipratropium 3 ml 05/29/18 14:05 05/29/18 14:18 Duoneb 0.5-3 Mg/3 Ml Neb IH 05/29/18 14:06 3 ml STAT ONE Administration Albuterol/Ipratropium Confirm 05/29/18 14:16 Duoneb 0.5-3 Mg/3 Ml Neb Administered 05/29/18 14:17 Dose 3 ml IH .STK-MED ONE Methylprednisolone Sodium Succinate 125 mg 05/29/18 14:45 05/29/18 15:00 Solu-Medrol 125 Mg IM 05/29/18 14:46 125 mg STAT ONE Administration Methylprednisolone Sodium Succinate Confirm 05/29/18 14:59 Solu-Medrol 125 Mg Administered 05/29/18 15:00 Dose 125 mg .ROUTE .STK-MED ONE Lab/Rad Data: Laboratory Results 05/29/18 Range/Units 14:05 Urine HCG, Qual NEGATIVE (Negative) - Progress Progress: improved Progress Note: 05/29/18 14:46 21-year-old white female arrives with complaint of a cough symptoms going on for about 2 weeks she had been seen couple weeks ago and told that she had influenza patient apparently presented last Sunday to states he smells office she was given an injection of steroids sent home with a a pro-air inhaler, prednisone, and antibiotics. she states she continues to cough. patient with a normal chest x- ray, normal pulse oximetry vitals are stable Patient is given albuterol treatment. Also given Solu-Medrol 125 mg IM. We'll plan to discharge patient diagnosis bronchitis, bronchospasm. Patient to continue antibiotic steroids and albuterol as prescribed by Hilary Baird. She is to use plenty of fluids. 05/29/18 14:49 - Departure Time of Disposition: 14:49 Departure Disposition: Home Clinical Impression: Bronchitis, Bronchospasm URI (upper respiratory infection) Qualifiers: URI type: unspecified URI Qualified Code(s): J06.9 - Acute upper respiratory infection, unspecified Condition: Good Critical Care Time: No Referrals: FLORIAN BAIRD [Primary Care Provider] - Instructions: Cough, Adult (DC) Additional Instructions: Return home. Plenty of fluids. Continue antibiotics, prednisone, pro-air inhaler as prescribed by your family doctor. Follow-up with your family doctor if symptoms are worse, no better in 48 hours, or persist longer than one week. Return for acute distress or for severe symptoms.
[2018-05-29 14:40] VITALS: BP 131/74; PULSE 95
[2018-05-29 14:43] VITALS: O2SAT 98
--- NOTE | 2018-05-29 14:44 | XRAY ---
Indication: Cough. Comparison: March 31, 2017. Portable chest again demonstrates normal heart, lungs, and bony thorax.
[2018-05-29] MEDS ORDERED: solu-MEDROL 125 MG IM ONE (14:45)
[2018-05-29] MEDS ORDERED: solu-MEDROL 125 MG ONE (14:59)
== END 2018-05-29 15:17 | disposition home or self-care (01) ==
LOC: ED 13:37
DX: J40 Bronchitis, not specified as acute or chronic (principal); J98.01 Acute bronchospasm; J06.9 Acute upper respiratory infection, unspecified; Z79.899 Other long term (current) drug therapy
CPT/HCPCS: 71045; 84703; 94150; 94640; 96372; 99284; J2930; A9270-GY